=== PATIENT | female | born 1960 | race Caucasian/White ===

== ENCOUNTER 2019-06-01 10:06 | Observation (INO) | payer OTHER ==
[~2019-06-01] VITALS: Ht 167.6 cm; Wt 53.9 kg
[~2019-06-01 10:06] MED LIST: ACET-1600 PO; DIPH25CA61 PO; FLUO40CA9 PO; IBUP200T64 PO; MELA1TAB6 PO; OXYC-306 PO; PROM12.57 PO
[2019-06-01] MEDS ORDERED: VANCOMYCIN PER PHARMACY MC STA (10:22)
[2019-06-01] MEDS ORDERED: VANCOMYCIN PMX 1GM/200ML 200 ML IVPB SCH (10:30)
[2019-06-01] MEDS ORDERED: LACTATED RINGERS 1,000 ML IV SCH (10:54)
[2019-06-01] MEDS ORDERED: SCOPOLAMINE PATCH, 1.5MG PATCH.TD72 TD ONE (11:00)
[2019-06-01] MEDS ORDERED: GABAPENTIN 300 MG CAPSULE PO ONE (11:00)
[2019-06-01] MEDS ORDERED: DIAZEPAM 5 MG TABLET PO ONE (11:00)
[2019-06-01] MEDS: ACETAMINOPHEN 500 MG TABLET PO ONE (11:00)
[2019-06-01] MEDS ORDERED: OxyconTIN ER 10 MG TAB.ER PO ONE (11:00)
[2019-06-01] MEDS ORDERED: MIDAZOLAM 1 MG/ML, 2ML ONE (11:03)
[2019-06-01] MEDS ORDERED: FENTANYL PF 250 MCG/5ML ONE (11:04)
[2019-06-01] MEDS ORDERED: TRANEXAMIC ACID 100 MG/ML, 10ML ONE ×3 (11:28)
[2019-06-01] MEDS ORDERED: BUPIVACAINE/PF 0.5% ONE ×4 (11:28→12:59)
[2019-06-01] MEDS ORDERED: EPINEPHRINE 1 MG/ML, 1ML ONE (11:28)
[2019-06-01] MEDS ORDERED: PROMETHAZINE 25 MG/ML, 1ML IV PRN (11:30)
[2019-06-01] MEDS ORDERED: METOPROLOL 1 MG/ML, 5ML IV PRN (11:30)
[2019-06-01] MEDS ORDERED: OXYcodone 5 MG/5 ML ORAL.SOL UDC PO PRN (11:30)
[2019-06-01] MEDS ORDERED: HYDROmorphone 2 MG/ML, 1ML IVPush PRN (11:30)
[2019-06-01] MEDS ORDERED: MEPERIDINE/PF 25MG/ML,1ML IVPush PRN (11:30)
[2019-06-01] MEDS ORDERED: MIDAZOLAM 1 MG/ML, 2ML IV PRN (11:30)
[2019-06-01] MEDS ORDERED: ALBUTEROL/IPRATROPIUM 2.5MG/0.5MG, 3 ML NPPB PRN (11:30)
[2019-06-01] MEDS ORDERED: ONDANSETRON 2MG/ML, 2ML IV PRN ×2 (11:30→12:00)
[2019-06-01] MEDS ORDERED: FENTANYL PF 100 MCG/2ML IV PRN (11:30)
[2019-06-01] MEDS ORDERED: hydrALAzine 20 MG/ML, 1ML IV PRN (11:30)
[2019-06-01] MEDS ORDERED: ASPI-650 PO (11:49)
[2019-06-01] MEDS ORDERED: KETAMINE 10 MG/ML, 20ML ONE (11:53)
[2019-06-01] MEDS ORDERED: CEFAZOLIN 1,000 MG ONE ×2 (11:53→12:59)
[2019-06-01] MEDS ORDERED: ROCURONIUM 10 MG/ML,10ML ONE (11:53)
[2019-06-01] MEDS ORDERED: SUCCINYLCHOLINE 20 MG/ML, 10ML ONE (11:53)
[2019-06-01] MEDS ORDERED: PROMETHAZINE 25 MG/ML, 1ML IM PRN (12:00)
[2019-06-01] MEDS ORDERED: IBUPROFEN 200 MG TABLET PO PRN (12:00)
[2019-06-01] MEDS ORDERED: PROMETHAZINE 25MG TABLET PO PRN (12:00)
[2019-06-01] MEDS ORDERED: DIPHENHYDRAMINE 25 MG CAPSULE PO PRN (12:00)
[2019-06-01] MEDS ORDERED: ACETAMINOPHEN 500 MG TABLET PO PRN (12:00)
[2019-06-01] MEDS ORDERED: SENNA/DOCUSATE TABLET PO PRN (12:00)
[2019-06-01] MEDS ORDERED: OXYcodone/APAP 5/325MG TABLET PO SCH (12:00)
[2019-06-01] MEDS ORDERED: KETAMINE 50 MG/ML, 10ML ONE (12:04)
[2019-06-01] MEDS ORDERED: ONDANSETRON 2MG/ML, 2ML ONE (12:59)
[2019-06-01] MEDS ORDERED: PROPOFOL 10 MG/ML, 20ML ONE (12:59)
[2019-06-01] MEDS ORDERED: LIDOCAINE-MPF 2% ,5ML ONE (12:59)
[2019-06-01] MEDS ORDERED: DEXAMETHASONE 4 MG/ML, 1ML ONE (12:59)
[2019-06-01] MEDS ORDERED: morphine SULFATE 10 MG/ML, 1ML ONE ×2 (13:41→13:58)
[2019-06-01] MEDS: morphine SULFATE 10 MG/ML, 1ML IVPush PRN ×4 (13:43→14:09)
[2019-06-01 15:00] VITALS: BP 148/84
[2019-06-01] MEDS ORDERED: OXYcodone/APAP 5/325MG TABLET ONE (15:39)
[2019-06-01] MEDS: D5%-0.45% NACL 1,000 ML IV SCH (15:52)
[2019-06-01] MEDS: OXYcodone/APAP 5/325MG TABLET PO SCH ×2 (15:53→21:55)
[2019-06-01 18:40] VITALS: BP 131/82
[2019-06-01] MEDS: DOCUSATE 100 MG CAPSULE PO SCH (21:00)
[2019-06-01] MEDS ORDERED: MELATONIN 3 MG TABLET PO SCH (21:00)
[2019-06-01] MEDS ORDERED: VANCOMYCIN PMX 1GM/200ML 200 ML IVPB ONE (23:00)
[2019-06-02 00:47] VITALS: BP 121/76
[2019-06-02] MEDS: OXYcodone/APAP 5/325MG TABLET PO SCH ×2 (04:13→09:40)
[2019-06-02] MEDS: D5%-0.45% NACL 1,000 ML IV SCH (05:00)
[2019-06-02 05:30] VITALS: BP 112/74
[2019-06-02 07:42] VITALS: BP 115/75
[2019-06-02] MEDS: DOCUSATE 100 MG CAPSULE PO SCH (08:58)
[2019-06-02] MEDS ORDERED: ASPIRIN 325 MG TABLET EC PO ONE (09:00)
[2019-06-02] MEDS ORDERED: FLUOXETINE HCL 20 MG CAPSULE PO SCH (09:00)
[2019-06-02] MEDS ORDERED: ASPIRIN 325 MG TABLET PO SCH (09:00)
[2019-06-02 12:53] VITALS: BP 128/78
[2019-06-02 13:29] VITALS: BP 126/82
[2019-06-02 13:45] VITALS: BP 132/79
== END 2019-06-02 14:35 | disposition home or self-care (01) ==
LOC: OUT 10:06 → ORIP 11:51 → 4NE 14:56
PROVIDERS: ADMIT Orthopaedic Surgery; ATTEND Orthopaedic Surgery
DX: M17.11 Unilateral primary osteoarthritis, right knee (principal); J45.909 Unspecified asthma, uncomplicated; F32.9 Major depressive disorder, single episode, unspecified; Z79.899 Other long term (current) drug therapy
CPT/HCPCS: 27447; 73560; 96365; 96376; 97161; 97165; C1713; C1776; G0378; J0171; J0330; J0690; J1100; J2250; J2270; J2405; J2704; J3010; J3370; J3490; J7120; S0020